=== PATIENT | male | born 1985 | race Caucasian/White ===

== ENCOUNTER 2018-07-13 14:27 | Emergency (ER) | payer BC ==
[2018-07-13 14:35] VITALS: BP 131/85
[2018-07-13] MEDS ORDERED: Lidocaine 1%* 5 ML VIAL INJ ONE (14:43)
--- NOTE | 2018-07-13 14:46 | UC ---
Laceration HPI - HPI Summary HPI Summary: The patient is a 32 y/o M presenting to [facility] c/o laceration to his right lower arm near his elbow today less than an hour [employer]. 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 The pt is not currently in any pain. He does not think any metal broke off into his arm. He has FROM in his hand, wrist, and shoulder, and there is not any associated numbness or tingling. He is not UTD on his tetanus vaccine. He uses tobacco. He has PSHx of metal being placed in right humerus. No hx of HTN, hypercholesterolemia, or diabetes. No FHx of diabetes or cardiac disease. - History Of Current Complaint Chief Complaint: UCLaceration Stated Complaint: ARM LACERATION Time Seen by Provider: 07/13/18 14:36 Hx Obtained From: Patient Laceration Location: Arm - right lower near elbow Mechanism Of Injury: Sharp Trauma - metal stud used in wall construction Onset/Duration: Sudden Onset, Lasting Minutes, Still Present Severity: Moderate Pain Intensity: 0 Pain Scale Used: 0-10 Numeric Aggravating Factors: Nothing Full Body (No Head): 1 - laceration to back of lower right arm near elbow - Allergies/Home Medications Allergies/Adverse Reactions: Allergies Allergy/AdvReac Type Severity Reaction Status Date / Time No Known Allergies Allergy Verified 07/13/18 14:35 PMH/Surg Hx/FS Hx/Imm Hx Other Endocrine History: NEGATIVE: diabetes, hypercholesterolemia Other Cardiovascular History: NEGATIVE: HTN - Surgical History Surgical History: Yes Surgery Procedure, Year, and Place: APPENDECTOMY - Family History Known Family History: Negative: Cardiac Disease, Diabetes - Social History Alcohol Use: Weekly Substance Use Type: Marijuana Substance Use Comment - Amount & Last Used: once amonth Smoking Status (MU): Unknown if Ever Smoked Type: Smokeless Tobacco Amount Used/How Often: 1 CAN/DAY Length of Time of Smoking/Using Tobacco: 5 YEARS Have You Smoked in the Last Year: Yes - CHEWING TOBACCO Review of Systems Skin: Other - bleeding and erythema in laceration to right ebow Musculoskeletal: Other: - FROM in right hand/wrist/shoulder Neurological: Other - NEGATIVE: numbness/tingling All Other Systems Reviewed And Are Negative: Yes Physical Exam - Summary Physical Exam Summary: General: well-appearing, no pain distress Skin: warm, color reflects adequate perfusion, dry, 4cm laceration to the right forearm, subcutaneous, no muscle injury seen, clean Head: normal Eyes: EOMI, SUMEET ENT: normal Neck: supple, nontender Respiratory: CTA, breath sounds present Cardiovascular: RRR Abdomen: soft, nontender Bowel: present Musculoskeletal: normal, strength/ROM intact Neurological: sensory/motor intact, A&O x3 Psychological: affect/mood appropriate Triage Information Reviewed: Yes Vital Signs: Initial Vital Signs Temp 99.8 F 07/13/18 14:32 Pulse 94 07/13/18 14:32 Resp 18 07/13/18 14:32 BP 131/85 07/13/18 14:32 Pulse Ox 97 07/13/18 14:32 Vital Signs Reviewed: Yes Laceration Repair - Laceration Repair 1 Procedure Summary: laceration repair to lower right arm Description: Linear - 4cm Laceration Size After Repair: Length (cm) - 4cm Modified For Repair: No Type Injection: Local Anesthesia Used: 1.0% Lido Cleansing Completed Via Routine Prep: Yes Closure Material: Sutures - 8 sutures total Closure Method: Single Layer Suture Of: Skin Suture Type: Prolene - 3 sutures with 4-0 prolene, and 5 sutures with 5-0 prolene Laceration Course/Dx - Course/Dx Course Of Treatment: Medications reviewed. No allergies noted. TDAP GIVEN TODAY. F/U PMD; RECHECK SOONER IF WORSE. - Differential Dx - Laceration/Wound Provider Diagnoses: right arm laceration Discharge - Sign-Out/Discharge Documenting (check all that apply): Patient Departure - Patient will be discharged home. - Discharge Plan Condition: Stable Disposition: HOME Prescriptions: Cephalexin CAP* [Keflex CAP*] 500 mg PO TID #21 cap Patient Education Materials: Care For Your Stitches (ED), Laceration (ED) Referrals: [facility] [place] [facility] REFERRAL [Outside] Additional Instructions: FOLLOW UP WITH YOUR DOCTOR. SUTURES OUT IN 8-10 DAYS. GET RECHECKED FOR ANY WORSENING OF YOUR CONDITION OR QUESTIONS OR CONCERNS. - Billing Disposition and Condition Condition: STABLE Disposition: Home Attestation Statement Scribe Attestation: This is andrésibe Amparo Jon documenting for attending Dr. Miguelito Monique MD. User Type: Provider with Scribe Provider Attestation: The documentation recorded by the scribe accurately reflects the service I personally performed and the decisions made by me.
[2018-07-13] MEDS ORDERED: Tetan/Diph/Pertus SYR(Tdap)* 0.5 ML SYR(BOOSTRIX) use SYR IM ONE (15:29)
== END 2018-07-13 16:04 | disposition home or self-care (01) ==
LOC: UCEAST 14:27
DX: S51.811A Laceration without foreign body of right forearm, initial encounter (principal); W26.8XXA Contact with other sharp object(s), not elsewhere classified, initial encounter; Y93.H3 Activity, building and construction; Y92.69 Other specified industrial and construction area as the place of occurrence of the external cause; Z23 Encounter for immunization; F17.220 Nicotine dependence, chewing tobacco, uncomplicated
CPT/HCPCS: 12002; 90471; 90715; 99212; G0463

== ENCOUNTER 2018-07-22 07:16 | Emergency (ER) | payer BC ==
[2018-07-22 07:32] VITALS: BP 138/87
--- NOTE | 2018-07-22 07:48 | UC ---
HPI Wound/Suture Re-check - HPI Summary HPI Summary: This patient is a 32 year old M presenting to [facility] with a chief complaint of 8 sutures placed on R arm on 07/13/2018 which need to be removed. Patient denies any drainage, fever, or pain. Tdap updated date of injury. No concerns regarding wound healing. Patient is concerned about high BP (137/87) and does not have a PCP. trending BP - cosnsisitently in 130 systolic x 2 year. Pt without symptoms. D/w pt to reduce caffeine, tobacco, salt pt's medications reviewed - History Of Current Complaint Chief Complaint: UCLaceration Stated Complaint: SUTURE REMOVAL Time Seen by Provider: 07/22/18 07:32 Hx Obtained From: Patient Onset/Duration: Lasting Days - Sutures on 07/13/2018 Pain Intensity: 0 Pain Scale Used: 0-10 Numeric - Allergies/Home Medications Allergies/Adverse Reactions: Allergies Allergy/AdvReac Type Severity Reaction Status Date / Time No Known Allergies Allergy Verified 07/22/18 07:32 Home Medications: Home Medications NK [No Home Medications Reported] 07/22/18 [History Confirmed 07/22/18] PMH/Surg Hx/FS Hx/Imm Hx Endocrine History: Diabetes - Denies Respiratory History: Asthma - Denies - Surgical History Surgical History: Yes Surgery Procedure, Year, and Place: APPENDECTOMY - Family History Known Family History: Negative: Cardiac Disease, Diabetes - Social History Occupation: Employed Full-time - [place]: With Family Alcohol Use: Weekly Substance Use Type: Marijuana Substance Use Comment - Amount & Last Used: once amonth Smoking Status (MU): Unknown if Ever Smoked Type: Smokeless Tobacco Amount Used/How Often: 1 CAN/DAY Length of Time of Smoking/Using Tobacco: 5 YEARS Have You Smoked in the Last Year: Yes - CHEWING TOBACCO Review of Systems Constitutional: Fever - Denies Skin: Other - Denies drainage or pain on the 8 sutures on R arm All Other Systems Reviewed And Are Negative: Yes Physical Exam - Summary Physical Exam Summary: Vital Signs Reviewed: Yes A+Ox3, no distress Eyes: Conjunctiva Clear ENT: Hearing grossly normal neck: supple Respiratory: Positive: No respiratory distress, No accessory muscle use Cardiovascular: skin color reflect adequate perfusion Musculoskeletal Exam: GONZALEZ x 4 without difficulty Neurological: Positive: Alert, ambulatory without difficulty Psychological: Positive: Normal Response To Family Skin: Positive: right forearm sutures c/d/i no erythema, drainage, fluctuance, pain sutures removed by me pt tolerated well Triage Information Reviewed: Yes Vital Signs: Initial Vital Signs Temp 98.1 F 07/22/18 07:25 Pulse 66 07/22/18 07:25 Resp 18 07/22/18 07:25 BP 138/87 07/22/18 07:25 Pulse Ox 98 07/22/18 07:25 Vital Signs Reviewed: Yes Course/Dx - Course Course Of Treatment: sutures removed by me - wound c/d/i. reviewed wound care and scar formation with pt. d/w pt BP. referred to physician referral center. return precautions - Differential Dx - Laceration/Wound Provider Diagnoses: suture removal Discharge - Sign-Out/Discharge Documenting (check all that apply): Patient Departure All imaging exams completed and their final reports reviewed: No Studies - Discharge Plan Condition: Stable Disposition: HOME Patient Education Materials: Stitches Removal (ED) Referrals: [facility] [place] [facility] REFERRAL [Outside] No Primary Care Phys,NOPCP [Primary Care Provider] - Additional Instructions: - keep wound clean and dry - at work cover with a thin layer of antibiotic ointment and bandage. Okay to leave uncovered when not at work or in a dirty environment - keep your wound out of direct sun (wear a hat or sun screen) - it may take up to 8 months for your scar to reach its final state - Contact your doctor or return here with questions or concerns - Billing Disposition and Condition Condition: STABLE Disposition: Home - Attestation Statements Document Initiated by Scribe: Yes Documenting Scribe: Lee Sandoval Provider For Whom Lupillo is Documenting (Include Credential): Meghann Aldridge MD Scribe Attestation: Lee Saldana, scribed for Meghann Aldridge MD on 07/22/18 at 0753. Scribe Documentation Reviewed: Yes Provider Attestation: The documentation as recorded by the Lee finnegan accurately reflects the service I personally performed and the decisions made by , Meghann Aldridge MD
== END 2018-07-22 07:50 | disposition home or self-care (01) ==
LOC: UCEAST 07:16
DX: S41.111D Laceration without foreign body of right upper arm, subsequent encounter (principal); X58.XXXD Exposure to other specified factors, subsequent encounter; F17.220 Nicotine dependence, chewing tobacco, uncomplicated

== ENCOUNTER 2018-10-07 07:22 | Emergency (ER) | payer BC ==
[2018-10-07 07:35] VITALS: BP 120/75
[2018-10-07] MEDS ORDERED: Lidocaine 2.5%/Prilocain 2.5%* 5 GM TUBE TOPICAL ONE (07:37)
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
== END 2018-10-07 08:42 | disposition home or self-care (01) ==
LOC: UCEAST 07:22
DX: S30.861A Insect bite (nonvenomous) of abdominal wall, initial encounter (principal); W57.XXXA Bitten or stung by nonvenomous insect and other nonvenomous arthropods, initial encounter; Y92.9 Unspecified place or not applicable
CPT/HCPCS: 99212; A9270-GY; G0463

== ENCOUNTER 2019-10-31 07:24 | Emergency (ER) | payer BC ==
[2019-10-31 07:41] VITALS: BP 131/82
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
[2019-10-31] MEDS ORDERED: Lidocaine 1% MPF ** 5 ML VIAL INJ ONE (09:26)
== END 2019-10-31 09:56 | disposition home or self-care (01) ==
LOC: UCEAST 07:24
DX: S60.351A Superficial foreign body of right thumb, initial encounter (principal); L08.9 Local infection of the skin and subcutaneous tissue, unspecified; W45.8XXA Other foreign body or object entering through skin, initial encounter; Y92.9 Unspecified place or not applicable
CPT/HCPCS: 10120; 99212; G0463